=== PATIENT | male | born 1965 | race Caucasian/White ===

== ENCOUNTER → 2016-08-29 | Outpatient (CLI) | payer MEDICARE ==
[2016-08-29 11:52] LABS: Basophils % (A) 1 %; CH 31.8; CHCM 33.2; Eosinophils # (A) 0.2 k/uL (0-0.7); Eosinophils % (A) 5 %; HCT 37.2 % (39.0-53.0); HDW 3.15; HGB 12.3 gm/dL (13.0-17.5); Luc # (Auto) 0.12; Luc % (Auto) 3; Lymphocytes # (A) 0.9 k/uL (1.0-4.8); Lymphocytes % (A) 24 %; MCH 31.8 pg (25.0-35.0); MCHC 33.1 g/dL (31.0-37.0); MCV 96.3 fL (80.0-100.0); Mean Platelet Volume 8.8; Monocytes # (A) 0.3 k/uL (0-1.0); Monocytes % (A) 8 %; Neutrophils # (A) 2.2 k/uL (1.3-7.7); Neutrophils % (A) 60 %; RBC 3.86 m/uL (4.30-5.90); RDW 15.8 % (11.5-15.5); WBC 3.7 k/uL (3.8-10.6); WBC (Perox) 3.64
[2016-08-29 12:09] LABS: ALT 62 U/L (21-72); AST 99 U/L (17-59); Alkaline Phosphatase 330 U/L (38-126); Anion Gap 8 mmol/L; Bilirubin, Delta 1.3 mg/dL (0.0-0.2); Blood Urea Nitrogen 14 mg/dL (9-20); Calcium 9.6 mg/dL (8.4-10.2); Carbon Dioxide 27 mmol/L (22-30); Chloride 107 mmol/L (98-107); Glucose 99 mg/dL (74-99); Non-African American GFR(MDRD) >60 (>60 ml/min/1.73 sqM); Potassium 4.2 mmol/L (3.5-5.1); Sodium 142 mmol/L (137-145); Total Bilirubin 3.3 mg/dL (0.2-1.3); Total Protein 7.1 g/dL (6.3-8.2)
[2016-08-29 12:18] LABS: Manual Review Performed
[2016-08-29 14:01] LABS: ABG HCO3 23 mmol/L (21-25); ABG PCO2 30 mmHg (35-45); ABG PO2 91 mmHg (83-108); ABG TCO2 24 mmol/L (19-24)
== END | disposition home or self-care (01) ==
LOC: LABWHC1 11:32
PROVIDERS: ATTEND Radiology Diagnostic Radiology
DX: Z01.818 Encounter for other preprocedural examination (principal); R16.0 Hepatomegaly, not elsewhere classified
CPT/HCPCS: 36415; 36600; 80048; 80076; 82805; 85025

== ENCOUNTER → 2016-08-30 | Outpatient (CLI) | payer MEDICARE, OTHER ==
--- NOTE | 2016-08-30 15:02 | CT ---
EXAMINATION TYPE: CT abdomen wo con DATE OF EXAM: 08/30/2016 12:50 PM COMPARISON: 07/24/2015 INDICATION: Patient complains of continued RUQ pain post liver biopsy. DLP: 278.6 mGycm, Automated exposure control for dose reduction was used. CONTRAST: 0 mL of Omnipaque 300. Study performed without Oral Contrast TECHNIQUE: Axial images were obtained from above the diaphragm to the pubic rami in the axial plane a t 5 mm thick sections. Reconstructed images are reviewed on the computer in the coronal plane. FINDINGS: Limited CT sections are obtained the lung bases. The lung bases are clear. CT ABDOMEN: Liver: Liver appears lobulated. Correlate for cirrhosis of the liver. No underlying masses or cysts a re evident. Spleen: Enlarged measuring 16 cm in craniocaudal dimension. Normal less than 12.5 cm. Pancreas: Normal Adrenal glands: The adrenal glands are normal. Gallbladder: Normal Kidneys: No masses are evident. No hydronephrosis is present. No cysts are present. Aorta: Vascular calcification is within the aorta. Inferior vena cava: Normal. CT PELVIS: Loops of bowel within the abdomen and pelvis are normal. Appendix: Normal as visualized. IMPRESSIONS: 1. Splenomegaly. 2. Lobulated liver suspicious for cirrhosis of the liver. 3. Exam is stable from 07/24/2015
== END | disposition home or self-care (01) ==
LOC: RADCTMAIN 12:30
PROVIDERS: ATTEND Internal Medicine
DX: R16.1 Splenomegaly, not elsewhere classified (principal)
CPT/HCPCS: 74150

== ENCOUNTER → 2016-10-14 | Outpatient (CLI) | payer MEDICARE, OTHER ==
[2016-10-14 13:29] LABS: INR 1.2 (<1.1); Prothrombin Time 12.1 sec (9.0-12.0)
[2016-10-14 13:31] LABS: ALT 65 U/L (21-72); AST 138 U/L (17-59); Alkaline Phosphatase 207 U/L (38-126); Anion Gap 5 mmol/L; Bilirubin, Delta 1.7 mg/dL (0.0-0.2); Blood Urea Nitrogen 14 mg/dL (9-20); Calcium 9.1 mg/dL (8.4-10.2); Carbon Dioxide 30 mmol/L (22-30); Chloride 105 mmol/L (98-107); Glucose 82 mg/dL (74-99); Non-African American GFR(MDRD) >60 (>60 ml/min/1.73 sqM); Potassium 4.4 mmol/L (3.5-5.1); Sodium 140 mmol/L (137-145); Total Bilirubin 4.1 mg/dL (0.2-1.3); Total Protein 6.5 g/dL (6.3-8.2)
[2016-10-17 11:55] LABS: Cotinine <2.0 ng/mL (<2.0); Nicotine <2.0 ng/mL (<2.0)
== END | disposition home or self-care (01) ==
LOC: LABWHC1 12:42
PROVIDERS: ATTEND Internal Medicine Gastroenterology
DX: C22.8 Malignant neoplasm of liver, primary, unspecified as to type (principal)
CPT/HCPCS: 80048; 80076; 85610; 82105; 36415; G0480; 80323